=== PATIENT | male | born 1990 | race American Indian/Alaskan Native ===

== ENCOUNTER 2021-10-09 16:49 | Emergency (ER) | payer SELFPAY ==
[2021-10-09] MEDS ORDERED: CYCLOBENZAPRINE 10 MG TAB PO ONE (17:18)
[2021-10-09] MEDS ORDERED: KETOROLAC 10 MG TAB PO ONE (17:18)
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
[2021-10-09 23:41] VITALS: BP 132/64
== END 2021-10-09 23:41 | disposition home or self-care (01) ==
LOC: ED 16:49
DX: S39.012A Strain of muscle, fascia and tendon of lower back, initial encounter (principal); S13.4XXA Sprain of ligaments of cervical spine, initial encounter; V89.2XXA Person injured in unspecified motor-vehicle accident, traffic, initial encounter; Y93.89 Activity, other specified; Y92.89 Other specified places as the place of occurrence of the external cause; Y99.8 Other external cause status
CPT/HCPCS: 72040; 72125; 72131; 99284